=== PATIENT | female | born 1960 | race Caucasian/White ===

== ENCOUNTER 2017-02-22 05:13 | Emergency (ER) | payer OTHER ==
[~2017-02-22] VITALS: Ht 165.1 cm; Wt 77.5 kg
[~2017-02-22 05:13] MED LIST: AMOX TR-K CLV1 EAC4 PO; ANAPROX DS550 M1 PO; CALTRATE 6001 TABLE1 PO; CODEINE-GUAIFE120 ML PO; FISH OIL300 MG PO; HYDROCODON-ACE1 EAC7 PO; KEFLEX500 MG PO; LIPITOR40 MG PO; LIPITOR80 MG PO; PERCOCET 5/31 TABLET PO; PREDNISONE20 MG PO; PROAIR HFA8.5 GM IH; SERTRALINE HCL100 MG PO; TAMIFLU75 MG PO; VITAMIN D1000 UNIT PO; ZOFRAN4 MG PO
[2017-02-22 05:55] LABS: HEMATOCRIT 36.5 % (36.0-46.0); HEMOGLOBIN 12.3 G/DL (11.9-15.5); MCH 29.4 PG (29.0-34.0); MCHC 33.7 G/DL (30.0-36.0); MCV 87.3 FL (83-99); PLATELET COUNT 131 K/uL (156-360); RBC DIS.WIDTH-CV 13.2 % (11.8-14.6); RED BLOOD COUNT 4.18 M/uL (3.80-5.20); WHITE BLOOD COUNT 7.8 K/uL (4.1-10.2)
[2017-02-22 06:06] LABS: ALBUMIN 4.7 g/dL (3.2-4.8)
[2017-02-22 06:07] LABS: CHLORIDE 109 mEq/L (99-109); POTASSIUM 3.8 mEq/L (3.7-5.4); SODIUM 141 mEq/L (136-147)
[2017-02-22 06:09] LABS: GLUCOSE 132 mg/dL (70-99); TOTAL PROTEIN 7.4 g/dL (6.4-8.3)
[2017-02-22 06:11] LABS: TOTAL BILIRUBIN 0.6 mg/dL (0.0-1.0)
[2017-02-22 06:13] LABS: ALKALINE PHOSPHATASE 37 IU/L (3-129); CREATININE 0.8 mg/dL (0.6-1.3); GFR ESTIMATE (CALCULATED) > 59 mL/min/
[2017-02-22 06:14] LABS: UREA NITROGEN (BUN) 13 mg/dL (9-23)
[2017-02-22 06:15] LABS: AST (GOT) 20 IU/L (2-34)
[2017-02-22 06:16] LABS: ALT (GPT) 29 IU/L (3-49); LIPASE 32 U/L (1.0-51.0)
[2017-02-22] MEDS ORDERED: AUGMENTIN875 MG PO (06:31)
[2017-02-22] MEDS ORDERED: TAMIFLU75 MG PO (06:32)
[2017-02-22] MEDS ORDERED: TESSALON200 MG PO (06:32)
[2017-02-22] MEDS ORDERED: PROVENTIL HFA6.7 GM IH (06:32)
[2017-02-22 06:51] LABS: APPEARANCE CLEAR ((CLEAR)); BILIRUBIN NEGATIVE; BLOOD TRACE; COLOR YELLOW ((YELLOW)); GLUCOSE (STRIP) NEGATIVE; KETONES NEGATIVE; LEUKOCYTES TRACE; NITRITE NEGATIVE; PROTEIN (STRIP) NEGATIVE; UROBILINOGEN 0.2 MG/DL (0.2-1.0)
[2017-02-22 06:56] LABS: AMORPHOUS PHOSPHATE CRYSTALS 1+; BACTERIA 2+ /HPF; EPITHELIAL CELLS 1+ /HPF; MUCUS 1+ /LPF; RED BLOOD CELLS 0-5 /HPF (0-5); UCUL ADDED? YES; WHITE BLOOD CELLS 0-5 /HPF (0-5)
[2017-02-22 09:15] VITALS: BP 147/73
== END 2017-02-22 09:20 | disposition home or self-care (01) ==
LOC: EME 05:13
PROVIDERS: Emergency Medicine
DX: J11.08 Influenza due to unidentified influenza virus with specified pneumonia (principal); J18.9 Pneumonia, unspecified organism; E78.5 Hyperlipidemia, unspecified; F41.9 Anxiety disorder, unspecified; Z87.891 Personal history of nicotine dependence
CPT/HCPCS: 71046; 80053; 81003; 83690; 85027; 87086; 87651 90; 99281; 99284